=== PATIENT | male | born 1985 | race Two or more races ===

== ENCOUNTER 2018-09-11 23:51 | Emergency (ER) | payer OTHER ==
[~2018-09-11] VITALS: Ht 175.3 cm; Wt 81.6 kg
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
[2018-09-12] MEDS ORDERED: HALOPERIDOL LACTATE INJ 5 MG/ML VIAL IM ONE (00:30)
[2018-09-12] MEDS ORDERED: HALOPERIDOL LACTATE INJ 5 MG/ML VIAL ONE (00:36)
--- NOTE | 2018-09-12 00:42 | NUR ---
PT NOW ASLEEP, EASILY AROUSABLE, IN ER BED ON MONITOR. HALDOL HELD AT THIS TIME.
--- NOTE | 2018-09-12 01:06 | NUR ---
PT NOW AGITATED, TRYING TO LEAVE DESPITE FREQUENT REORIENTATION AND EDUCATION. MEDICATED WITH HALDOL PER ORDER
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
--- NOTE | 2018-09-12 03:33 | NUR ---
CALL PLACED TO PT'S CARLA AT [phone], STATES SHE WILL TRY TO FIND SOMEONE TO PICK HIM UP
--- NOTE | 2018-09-12 04:18 | NUR ---
Patient discharged to home in stable condition. Written and verbal after care instructions given. Patient verbalizes understanding of instruction. ABULATORY WITH STEADY GAIT. DISCHARGED TO 'S CARE.
[2018-09-12 04:19] VITALS: BP 131/76
== END 2018-09-12 04:20 | disposition home or self-care (01) ==
LOC: ER 23:52
DX: S00.83XA Contusion of other part of head, initial encounter (principal); F10.129 Alcohol abuse with intoxication, unspecified; F32.9 Major depressive disorder, single episode, unspecified; Y90.9 Presence of alcohol in blood, level not specified; Y04.0XXA Assault by unarmed brawl or fight, initial encounter; Y93.89 Activity, other specified; Y92.89 Other specified places as the place of occurrence of the external cause; Y99.8 Other external cause status
CPT/HCPCS: 70450; 70486; 72125; 82962; 96372; 99284; A4606; J1630; Z7610